=== PATIENT | female | born 1975 | race African-American/Black ===

== ENCOUNTER 2020-01-15 15:16 | Emergency (ER) | payer MEDICAID, MEDICARE ==
[~2020-01-15] VITALS: Ht 160 cm; Wt 70.5 kg
[2020-01-15] MEDS ORDERED: vimpat (15:27)
[2020-01-15] MEDS ORDERED: xanax (15:27)
[2020-01-15] MEDS ORDERED: SODIUM CHLORIDE 0.9% 1,000 ML IV ONE (15:38)
[2020-01-15 16:27] LABS: BASOPHILS % 0.6 % (0.0-2.0); EOSINOPHILS % 2.7 % (0.0-5.0); HEMATOCRIT. 33.7 % (36.0-48.0); HEMOGLOBIN. 11.6 g/dL (12.0-16.0); LYMPHOCYTES % 39.9 % (20.0-50.0); MEAN CORPUSCULAR HEMOGLOBIN 33.5 pg (28.0-32.0); MEAN CORPUSCULAR VOLUME 97.5 fL (81.0-99.0); NEUTROPHILS % 44.8 % (40.0-76.0); PLATELET 254 x1000/uL (130-400); RED BLOOD CELL COUNT 3.45 mill/uL (4.2-5.4); RED CELL DISTRIBUTION WIDTH 12.5 % (11.6-14.6)
[2020-01-15 16:34] LABS: CHLORIDE 105 mEq/L (98-107)
[2020-01-15 16:38] LABS: ETHANOL BLOOD < 10 mg/dL
[2020-01-15 16:47] LABS: CARBAMAZEPINE < 0.5 ug/mL (4-12); VALPROIC ACID < 3.0 ug/mL (50-100)
[2020-01-15 17:40] VITALS: BP 132/92
== END 2020-01-15 17:41 | disposition home or self-care (01) ==
LOC: ER 15:16
DX: R56.9 Unspecified convulsions (principal); R03.0 Elevated blood-pressure reading, without diagnosis of hypertension; G93.89 Other specified disorders of brain; Z86.011 Personal history of benign neoplasm of the brain; Z98.890 Other specified postprocedural states
CPT/HCPCS: 36415; 70450; 71045; 80053; 80156; 80165; 80185; 80320; 85025; 93005; 99285; J7030; 80305; 81003; G0480

== ENCOUNTER 2020-02-17 18:15 | Emergency (ER) | payer SELFPAY ==
[~2020-02-17] VITALS: Ht 162.6 cm; Wt 65.0 kg
[~2020-02-17 18:15] MED LIST: vimpat; xanax
[2020-02-17] MEDS ORDERED: SODIUM CHLORIDE 0.9% 1,000 ML IV ONE (18:43)
[2020-02-17 19:07] LABS: BASOPHILS % 0.7 % (0.0-2.0); EOSINOPHILS % 0.7 % (0.0-5.0); HEMATOCRIT. 39.8 % (36.0-48.0); HEMOGLOBIN. 13.6 g/dL (12.0-16.0); MEAN CORPUSCULAR HEMOGLOBIN 32.8 pg (28.0-32.0); MEAN CORPUSCULAR VOLUME 96.3 fL (81.0-99.0); MEAN PLATELET VOLUME 7.7 fl (7.4-10.4); NEUTROPHILS % 62.6 % (40.0-76.0); PLATELET 279 x1000/uL (130-400); RED BLOOD CELL COUNT 4.13 mill/uL (4.2-5.4); RED CELL DISTRIBUTION WIDTH 12.5 % (11.6-14.6)
[2020-02-17 19:12] LABS: CHLORIDE 104 mEq/L (98-107)
[2020-02-17 20:48] VITALS: BP 132/89
== END 2020-02-17 20:49 | disposition home or self-care (01) ==
LOC: ER 18:15
DX: R56.9 Unspecified convulsions (principal); D64.9 Anemia, unspecified
CPT/HCPCS: 36415; 71045; 80053; 85025; 93005; 99285; J7030

== ENCOUNTER 2020-04-01 18:02 | Emergency (ER) | payer SELFPAY ==
[~2020-04-01] VITALS: Ht 162.6 cm; Wt 79.0 kg
[2020-04-01] MEDS ORDERED: ACETAMINOPHEN WITH CODEINE 300/30MG TABLET PO STA (20:42)
[2020-04-01] MEDS ORDERED: LORAZEPAM 1MG TABLET PO ONE (20:45)
[2020-04-01 21:01] LABS: BASOPHILS % 0.5 % (0.0-2.0); EOSINOPHILS % 1.7 % (0.0-5.0); HEMATOCRIT. 38.5 % (36.0-48.0); LYMPHOCYTES % 22.5 % (20.0-50.0); MEAN CORPUSCULAR HEMOGLOBIN 32.3 pg (28.0-32.0); MEAN CORPUSCULAR VOLUME 95.9 fL (81.0-99.0); MEAN PLATELET VOLUME 8.1 fl (7.4-10.4); MONOCYTES % 6.5 % (2.0-8.0); NEUTROPHILS % 68.8 % (40.0-76.0); PLATELET 295 x1000/uL (130-400); RED BLOOD CELL COUNT 4.01 mill/uL (4.2-5.4); RED CELL DISTRIBUTION WIDTH 12.6 % (11.6-14.6)
[2020-04-01 21:06] LABS: CHLORIDE 105 mEq/L (98-107)
[2020-04-01 21:10] LABS: ETHANOL BLOOD < 10 mg/dL
[2020-04-01 22:21] LABS: HCG SCREEN NEGATIVE
[2020-04-01 22:33] VITALS: BP 124/67
== END 2020-04-01 22:34 | disposition home or self-care (01) ==
LOC: ER 18:10
DX: G40.909 Epilepsy, unspecified, not intractable, without status epilepticus (principal); R03.0 Elevated blood-pressure reading, without diagnosis of hypertension
CPT/HCPCS: 36415; 80053; 80320; 84703; 85025; 93005; 99284; G0480